=== PATIENT | female | born 1970 | race Caucasian/White ===

== ENCOUNTER 2020-10-27 20:12 | Observation (INO) ==
[2020-10-27 21:18] LABS: Basophils # 0.1 K/mcL (0.0-0.2); Basophils % 0.4 %; Eosinophils # 0.1 K/mcL (0.0-0.6); Eosinophils % 0.4 %; Hematocrit 48.9 % (35.3-44.9); Immature Granulocytes % 0.4 % (0-4); Lymphocytes # 1.6 K/mcL (0.6-4.6); Lymphocytes % 9.2 %; Mean Corpuscular HGB Conc 32.7 g/dL (31.6-35.5); Mean Corpuscular Hemoglobin 26.2 pg (28.0-33.3); Mean Corpuscular Volume 80.2 fL (83.0-100.0); Mean Platelet Volume 9.6 fL (9.4-12.4); Monocytes # 0.9 K/mcL (0.0-1.3); Neutrophils # 15.1 K/mcL (1.6-8.9); Platelet Count 277 K/mcL (140-400); Red Cell Distribution Width 13.4 % (11.5-14.5); Segmented Neutrophils % 84.6 %; White Blood Count 17.9 K/mcL (4.3-11.1)
[2020-10-27 21:18] LABS: Bilirubin,Urine Negative (Negative); Blood,Urine Negative (Negative); Clarity,Urine Clear (Clear); Color,Urine Light-Yellow (Yellow); Glucose,Urine (UA) Normal (Normal); Ketones,Urine Trace mg/dL (Negative); Leukocyte Esterase,Urine Negative (Negative); Nitrite,Urine Negative (Negative); PH,Urine 7.5 pH Units (5.0-8.0); Protein,Urine Trace mg/dL (Neg-Trace); Specific Gravity,Urine 1.025 (1.010-1.025); Urobilinogen,Urine Normal (Normal)
[2020-10-27 21:32] LABS: BUN/Creatinine Ratio 20 (6-26); Blood Urea Nitrogen 14 mg/dL (6-20); Calcium 9.5 mg/dL (8.6-10.3); Carbon Dioxide 24 mEq/L (23-29); Chloride 102 mEq/L (98-107); Glucose 117 mg/dL (70-105); Osmolality,Calculated 282 (280-300); Potassium 4.2 mEq/L (3.5-5.1); Sodium 135 mEq/L (136-145); eGFR For African Americans > 60 (> 60); eGFR For Non-African Americans > 60 (> 60)
[2020-10-27] MEDS ORDERED: 0.9 % Sodium Chloride 1,000 ML IVC ONE (22:04)
[2020-10-27] MEDS ORDERED: *HR* FentaNYL (PF) 100 MCG/2 ML VIAL IVP ONE (22:04)
[2020-10-27] MEDS ORDERED: Ondansetron 4 MG/2 ML VIAL IVP ONE (22:04)
[2020-10-27] MEDS ORDERED: Isovue-370 500 ML BOTTLE IVP ONE (22:04)
[2020-10-27 22:07] LABS: Alanine Aminotransferase 25 Units/L (7-52); Albumin 4.7 g/dL (3.5-5.7); Albumin/Globulin Ratio 1.6 (1.1-2.2); Alkaline Phosphatase 82 Units/L (34-104); Aspartate Amino Transferase 17 Units/L (13-39); Bilirubin,Direct 0.1 mg/dL (0.0-0.2); Bilirubin,Indirect 0.7 mg/dL (0.0-1.0); Bilirubin,Total 0.8 mg/dL (0.3-1.0); Globulin 2.9 g/dL (2.4-3.5); Lipase 7 Units/L (11-82); Total Protein 7.6 g/dL (6.4-8.9)
[2020-10-27] MEDS ORDERED: MetroNIDAZOLE 500 MG/100 ML 500 MG/100 ML BAG IVPB ONE (23:43)
[2020-10-28 02:27] LABS: Adenovirus Not Detected (Not Detect); Bordetella Pertussis Not Detected (Not Detect); Chlamydophila pneumoniae Not Detected (Not Detect); Coronavirus 229E Not Detected (Not Detect); Coronavirus HKU1 Not Detected (Not Detect); Coronavirus NL63 Not Detected (Not Detect); Coronavirus OC43 Not Detected (Not Detect); Human Metapneumovirus Not Detected (Not Detect); Human Rhinovirus/Enterovirus Not Detected (Not Detect); Influenza A Subtype 2009 H1 Not Detected (Not Detect); Influenza B Not Detected (Not Detect); Mycoplasma pneumoniae Not Detected (Not Detect); Parainfluenza Virus 1 Not Detected (Not Detect); Parainfluenza Virus 2 Not Detected (Not Detect); Parainfluenza Virus 3 Not Detected (Not Detect); Parainfluenza Virus 4 Not Detected (Not Detect); Respiratory Syncytial Virus Not Detected (Not Detect); SARS-CoV-2 Not Detected (Not Detect)
[2020-10-28] MEDS ORDERED: Acetaminophen IV 1,000 MG/100 ML BAG IVPB SCH (03:00)
[2020-10-28] MEDS ORDERED: Ondansetron 4 MG/2 ML VIAL IVP SCH ×2 (03:03→03:07)
[2020-10-28] MEDS ORDERED: Pantoprazole 40 MG VIAL IVP ONE (03:04)
[2020-10-28] MEDS ORDERED: Ondansetron 4 MG/2 ML VIAL IVP PRN ×3 (03:11→11:55)
[2020-10-28] MEDS: 0.9 % Sodium Chloride 1,000 ML IVC SCH ×2 (03:18→12:05)
[2020-10-28] MEDS: Acetaminophen IV 1,000 MG/100 ML BAG IVPB SCH ×2 (04:28→09:16)
[2020-10-28] MEDS ORDERED: MetroNIDAZOLE 500 MG/100 ML 500 MG/100 ML BAG IVPB SCH (06:00)
[2020-10-28] MEDS ORDERED: Lidocaine -MPF 4% 5 ML AMPUL ONE (07:25)
[2020-10-28] MEDS ORDERED: Ondansetron 4 MG/2 ML VIAL ONE (07:25)
[2020-10-28] MEDS ORDERED: Lidocaine -MPF 2% 2 ML VIAL ONE (07:25)
[2020-10-28] MEDS ORDERED: *HR* Rocuronium Bromide 50 MG/5 ML VIAL ONE (07:25)
[2020-10-28] MEDS ORDERED: *HR* Propofol 200 MG/20 ML VIAL IVP ONE (07:29)
[2020-10-28] MEDS ORDERED: *HR* HYDROMORPHONE 2 MG/ML VIAL ONE (07:29)
[2020-10-28] MEDS ORDERED: *HR* FentaNYL (PF) 100 MCG/2 ML VIAL ONE (07:29)
[2020-10-28] MEDS ORDERED: Naloxone 0.4 MG/ML INJ IVP PRN (08:55)
[2020-10-28] MEDS ORDERED: *HR* FentaNYL (PF) 100 MCG/2 ML VIAL IVP PRN (08:55)
[2020-10-28] MEDS ORDERED: Nitroglycerin 0.4 MG TAB.SUBL SL PRN (08:55)
[2020-10-28] MEDS ORDERED: Albuterol 2.5 MG/3 ML NEBULIZER IH PRN (08:55)
[2020-10-28] MEDS ORDERED: Acetaminophen IV 1,000 MG/100 ML BAG IVPB ONE ×2 (09:32→09:35)
[2020-10-28] MEDS ORDERED: Ketorolac 30 MG/ML VIAL ONE (09:44)
[2020-10-28] MEDS ORDERED: Sugammadex Sodium 200 MG/2 ML VIAL IV ONE (09:44)
[2020-10-28] MEDS ORDERED: EPHEDrine 50 MG/ML VIAL ONE (09:47)
[2020-10-28] MEDS: *HR* HYDROmorphone (PF) 1 MG/ML SYRINGE IVP PRN ×2 (10:55→11:00)
[2020-10-28] MEDS ORDERED: *HR* OxyCODONE/APAP 5/325 TABLET PO PRN (11:55)
[2020-10-28] MEDS: Ketorolac 15 MG/ML VIAL IVP SCH ×2 (12:15→16:06)
[2020-10-28] MEDS: MetroNIDAZOLE 500 MG/100 ML 500 MG/100 ML BAG IVPB SCH ×2 (12:16→16:07)
[2020-10-28] MEDS: Pantoprazole 40 MG VIAL IVP SCH (16:06)
[2020-10-29] MEDS: Ketorolac 15 MG/ML VIAL IVP SCH ×2 (00:13→05:19)
[2020-10-29] MEDS: MetroNIDAZOLE 500 MG/100 ML 500 MG/100 ML BAG IVPB SCH ×2 (00:13→05:57)
[2020-10-29] MEDS: Pantoprazole 40 MG VIAL IVP SCH (05:18)
[2020-10-29] MEDS ORDERED: Ibuprofen 800 MG TABLET PO ONE (08:00)
[2020-10-29 11:07] VITALS: BP 102/65
== END 2020-10-29 11:30 | disposition home or self-care (01) ==
LOC: EMEROOARM 20:12 → 2ANU 20:12
PROVIDERS: ADMIT Surgery; ATTEND Surgery

== ENCOUNTER 2020-11-03 10:32 | Inpatient (IN) ==
[2020-11-03] MEDS ORDERED: Isovue-370 500 ML BOTTLE IVP ONE (11:04)
[2020-11-03] MEDS ORDERED: *HR* HYDROmorphone (PF) 1 MG/ML SYRINGE IVP STA ×2 (11:09→13:48)
[2020-11-03] MEDS ORDERED: Ondansetron 4 MG/2 ML VIAL IVP STA (11:09)
[2020-11-03 11:16] LABS: Bilirubin,Urine Negative (Negative); Blood,Urine Negative (Negative); Clarity,Urine Clear (Clear); Color,Urine Light-Yellow (Yellow); Glucose,Urine (UA) Normal (Normal); Ketones,Urine Negative (Negative); Leukocyte Esterase,Urine Negative (Negative); Nitrite,Urine Negative (Negative); PH,Urine 6.5 pH Units (5.0-8.0); Protein,Urine Trace mg/dL (Neg-Trace); Specific Gravity,Urine 1.021 (1.010-1.025); Urobilinogen,Urine Normal (Normal)
[2020-11-03] MEDS ORDERED: 0.9 % Sodium Chloride 1,000 ML IVC ONE (11:37)
[2020-11-03 11:44] LABS: INR 1.1; Prothrombin Time 13.2 Seconds (9.4-12.1)
[2020-11-03 11:47] LABS: Activated Partial Thrombo Time 31.6 Seconds (26.0-36.0)
[2020-11-03 11:49] LABS: Basophils # 0.1 K/mcL (0.0-0.2); Basophils % 0.8 %; Eosinophils # 0.2 K/mcL (0.0-0.6); Eosinophils % 2.1 %; Hematocrit 50.5 % (35.3-44.9); Immature Granulocytes % 0.7 % (0-4); Lymphocytes # 2.1 K/mcL (0.6-4.6); Lymphocytes % 19.6 %; Mean Corpuscular HGB Conc 31.7 g/dL (31.6-35.5); Mean Corpuscular Hemoglobin 25.9 pg (28.0-33.3); Mean Corpuscular Volume 81.8 fL (83.0-100.0); Mean Platelet Volume 9.3 fL (9.4-12.4); Monocytes # 0.5 K/mcL (0.0-1.3); Monocytes % 4.8 %; Neutrophils # 7.7 K/mcL (1.6-8.9); Platelet Count 304 K/mcL (140-400); Red Blood Count 6.17 M/mcL (3.82-4.97); Red Cell Distribution Width 13.3 % (11.5-14.5); White Blood Count 10.6 K/mcL (4.3-11.1)
[2020-11-03 11:57] LABS: Alanine Aminotransferase 27 Units/L (7-52); Albumin 4.4 g/dL (3.5-5.7); Albumin/Globulin Ratio 1.7 (1.1-2.2); Alkaline Phosphatase 70 Units/L (34-104); Aspartate Amino Transferase 23 Units/L (13-39); BUN/Creatinine Ratio 16 (6-26); Bilirubin,Direct 0.1 mg/dL (0.0-0.2); Bilirubin,Indirect 0.5 mg/dL (0.0-1.0); Bilirubin,Total 0.6 mg/dL (0.3-1.0); Blood Urea Nitrogen 13 mg/dL (6-20); Calcium 9.5 mg/dL (8.6-10.3); Carbon Dioxide 27 mEq/L (23-29); Chloride 104 mEq/L (98-107); Globulin 2.6 g/dL (2.4-3.5); Glucose 106 mg/dL (70-105); Lipase 8 Units/L (11-82); Osmolality,Calculated 287 (280-300); Potassium 4.3 mEq/L (3.5-5.1); Sodium 138 mEq/L (136-145); eGFR For African Americans > 60 (> 60); eGFR For Non-African Americans > 60 (> 60)
[2020-11-03] MEDS ORDERED: MetroNIDAZOLE 500 MG/100 ML 500 MG/100 ML BAG IVPB ONE (13:24)
[2020-11-03] MEDS ORDERED: Naloxone 0.4 MG/ML INJ IVP PRN (15:10)
[2020-11-03] MEDS: D5% in 0.9% NACL 1,000 ML IVC SCH (16:46)
[2020-11-03] MEDS: Pantoprazole 40 MG VIAL IVP SCH (19:06)
[2020-11-04] MEDS: Acetaminophen IV 1,000 MG/100 ML BAG IVPB SCH ×3 (00:35→15:58)
[2020-11-04] MEDS: Ondansetron 4 MG/2 ML VIAL IVP PRN ×2 (01:36→09:26)
[2020-11-04 05:13] LABS: Basophils # 0.1 K/mcL (0.0-0.2); Basophils % 0.7 %; Eosinophils # 0.2 K/mcL (0.0-0.6); Eosinophils % 2.4 %; Hematocrit 43.7 % (35.3-44.9); Immature Granulocytes % 0.5 % (0-4); Lymphocytes # 2.4 K/mcL (0.6-4.6); Lymphocytes % 25.9 %; Mean Corpuscular HGB Conc 31.6 g/dL (31.6-35.5); Mean Corpuscular Hemoglobin 26.1 pg (28.0-33.3); Mean Corpuscular Volume 82.8 fL (83.0-100.0); Mean Platelet Volume 9.4 fL (9.4-12.4); Monocytes # 0.6 K/mcL (0.0-1.3); Monocytes % 6.7 %; Platelet Count 259 K/mcL (140-400); Red Blood Count 5.28 M/mcL (3.82-4.97); Red Cell Distribution Width 13.2 % (11.5-14.5); Segmented Neutrophils % 63.8 %; White Blood Count 9.4 K/mcL (4.3-11.1)
[2020-11-04 05:14] LABS: Hemoglobin 13.8 g/dL (11.5-15.4)
[2020-11-04 05:36] LABS: Alanine Aminotransferase 27 Units/L (7-52); Albumin 3.6 g/dL (3.5-5.7); Albumin/Globulin Ratio 1.5 (1.1-2.2); Alkaline Phosphatase 50 Units/L (34-104); Aspartate Amino Transferase 21 Units/L (13-39); BUN/Creatinine Ratio 15 (6-26); Bilirubin,Direct 0.1 mg/dL (0.0-0.2); Bilirubin,Indirect 0.5 mg/dL (0.0-1.0); Bilirubin,Total 0.6 mg/dL (0.3-1.0); Blood Urea Nitrogen 12 mg/dL (6-20); Calcium 8.6 mg/dL (8.6-10.3); Carbon Dioxide 27 mEq/L (23-29); Chloride 105 mEq/L (98-107); Globulin 2.4 g/dL (2.4-3.5); Glucose 101 mg/dL (70-105); Magnesium 2.3 mg/dL (1.6-2.6); Osmolality,Calculated 284 (280-300); Phosphorous 3.8 mg/dL (2.7-4.5); Potassium 4.3 mEq/L (3.5-5.1); Sodium 137 mEq/L (136-145); eGFR For African Americans > 60 (> 60); eGFR For Non-African Americans > 60 (> 60)
[2020-11-04] MEDS: lisinopriL 20 MG TABLET PO SCH (07:37)
[2020-11-04] MEDS: Pantoprazole 40 MG VIAL IVP SCH (07:38)
[2020-11-04] MEDS: Bisacodyl 10 MG RECTAL SUPPOSITORY RC SCH (09:26)
[2020-11-04] MEDS ORDERED: Milk and Molasses Enema 200 ML RC ONE (12:45)
[2020-11-04] MEDS: D5% in 0.9% NACL 1,000 ML IVC SCH (14:41)
[2020-11-04] MEDS ORDERED: *HR* OxyCODONE/APAP 7.5/325 TABLET PO PRN (17:25)
[2020-11-04] MEDS: MetroNIDAZOLE 500 MG/100 ML 500 MG/100 ML BAG IVPB SCH (18:12)
[2020-11-04] MEDS: *HR* OxyCODONE/APAP 5/325 TABLET PO PRN (18:22)
[2020-11-05] MEDS: MetroNIDAZOLE 500 MG/100 ML 500 MG/100 ML BAG IVPB SCH ×3 (01:52→17:36)
[2020-11-05 02:39] LABS: Basophils # 0.1 K/mcL (0.0-0.2); Basophils % 0.6 %; Eosinophils # 0.2 K/mcL (0.0-0.6); Hematocrit 44.6 % (35.3-44.9); Hemoglobin 14.6 g/dL (11.5-15.4); Immature Granulocytes % 0.4 % (0-4); Lymphocytes # 2.4 K/mcL (0.6-4.6); Lymphocytes % 27.1 %; Mean Corpuscular HGB Conc 32.7 g/dL (31.6-35.5); Mean Corpuscular Hemoglobin 26.7 pg (28.0-33.3); Mean Corpuscular Volume 81.5 fL (83.0-100.0); Mean Platelet Volume 9.4 fL (9.4-12.4); Monocytes # 0.6 K/mcL (0.0-1.3); Monocytes % 6.9 %; Neutrophils # 5.7 K/mcL (1.6-8.9); Platelet Count 272 K/mcL (140-400); Red Blood Count 5.47 M/mcL (3.82-4.97)
[2020-11-05 02:56] LABS: BUN/Creatinine Ratio 14 (6-26); Blood Urea Nitrogen 11 mg/dL (6-20); Calcium 9.1 mg/dL (8.6-10.3); Carbon Dioxide 24 mEq/L (23-29); Chloride 106 mEq/L (98-107); Glucose 95 mg/dL (70-105); Magnesium 2.2 mg/dL (1.6-2.6); Osmolality,Calculated 283 (280-300); Potassium 3.9 mEq/L (3.5-5.1); Sodium 137 mEq/L (136-145); eGFR For African Americans > 60 (> 60); eGFR For Non-African Americans > 60 (> 60)
[2020-11-05] MEDS: lisinopriL 20 MG TABLET PO SCH (08:09)
[2020-11-05] MEDS: Pantoprazole 40 MG VIAL IVP SCH (08:09)
[2020-11-05] MEDS: Ondansetron 4 MG/2 ML VIAL IVP PRN (10:31)
[2020-11-05] MEDS ORDERED: Isovue-370 500 ML BOTTLE PO ONE (11:27)
[2020-11-05] MEDS: Bisacodyl 10 MG RECTAL SUPPOSITORY RC SCH (11:36)
[2020-11-05] MEDS ORDERED: polyethylene glycoL 3350 17 GM POWD.PACK PO ONE (12:53)
[2020-11-05] MEDS: *HR* OxyCODONE/APAP 5/325 TABLET PO PRN (19:42)
[2020-11-06] MEDS: MetroNIDAZOLE 500 MG/100 ML 500 MG/100 ML BAG IVPB SCH ×2 (02:29→09:58)
[2020-11-06] MEDS: *HR* OxyCODONE/APAP 5/325 TABLET PO PRN (03:34)
[2020-11-06] MEDS: Ondansetron 4 MG/2 ML VIAL IVP PRN (04:58)
[2020-11-06] MEDS: lisinopriL 20 MG TABLET PO SCH (09:57)
[2020-11-06] MEDS: Pantoprazole 40 MG VIAL IVP SCH (09:58)
[2020-11-06] MEDS: polyethylene glycoL 3350 17 GM POWD.PACK PO PRN (10:05)
[2020-11-06] MEDS: cefTRIAXone 1,000 MG in Water for inj. (sterile) 10 ML IVP SCH (13:46)
[2020-11-06] MEDS: metroNIDAZOLE 500 MG TABLET PO SCH ×2 (14:54→20:36)
[2020-11-07] MEDS: metroNIDAZOLE 500 MG TABLET PO SCH ×3 (08:35→21:59)
[2020-11-07] MEDS: Pantoprazole 40 MG VIAL IVP SCH (08:36)
[2020-11-07] MEDS: cefTRIAXone 1,000 MG in Water for inj. (sterile) 10 ML IVP SCH (08:36)
[2020-11-07] MEDS: lisinopriL 20 MG TABLET PO SCH (08:44)
[2020-11-07] MEDS: polyethylene glycoL 3350 17 GM POWD.PACK PO PRN (08:46)
[2020-11-07] MEDS ORDERED: Doxycycline 100 MG in 0.9 % Sodium Chloride Mini Bag 100 ML IVPB SCH (09:00)
[2020-11-07] MEDS: Sennosides/Docusate Sodium TABLET PO SCH ×2 (09:07→21:58)
[2020-11-07] MEDS: Doxycycline 100 MG CAPSULE PO SCH (21:59)
[2020-11-07] MEDS ORDERED: *HR* Promethazine 25 MG/ML VIAL IM ONE (23:59)
[2020-11-08] MEDS: metroNIDAZOLE 500 MG TABLET PO SCH ×3 (09:04→20:00)
[2020-11-08] MEDS: Doxycycline 100 MG CAPSULE PO SCH ×2 (09:04→20:00)
[2020-11-08] MEDS: Sennosides/Docusate Sodium TABLET PO SCH ×2 (09:04→20:00)
[2020-11-08] MEDS: lisinopriL 20 MG TABLET PO SCH (09:04)
[2020-11-08] MEDS: cefTRIAXone 1,000 MG in Water for inj. (sterile) 10 ML IVP SCH (11:42)
[2020-11-08] MEDS: Pantoprazole 40 MG VIAL IVP SCH (11:43)
[2020-11-09 04:06] LABS: Basophils # 0.1 K/mcL (0.0-0.2); Basophils % 0.6 %; Eosinophils # 0.2 K/mcL (0.0-0.6); Eosinophils % 1.5 %; Hematocrit 44.3 % (35.3-44.9); Hemoglobin 14.2 g/dL (11.5-15.4); Immature Granulocytes % 0.3 % (0-4); Lymphocytes # 2.8 K/mcL (0.6-4.6); Lymphocytes % 24.7 %; Mean Corpuscular HGB Conc 32.1 g/dL (31.6-35.5); Mean Corpuscular Volume 81.1 fL (83.0-100.0); Mean Platelet Volume 9.7 fL (9.4-12.4); Monocytes # 0.8 K/mcL (0.0-1.3); Monocytes % 7.1 %; Neutrophils # 7.6 K/mcL (1.6-8.9); Platelet Count 245 K/mcL (140-400); Red Blood Count 5.46 M/mcL (3.82-4.97); Red Cell Distribution Width 13.6 % (11.5-14.5); Segmented Neutrophils % 65.8 %; White Blood Count 11.5 K/mcL (4.3-11.1)
[2020-11-09 04:22] LABS: BUN/Creatinine Ratio 19 (6-26); Blood Urea Nitrogen 15 mg/dL (6-20); Calcium 9.2 mg/dL (8.6-10.3); Carbon Dioxide 25 mEq/L (23-29); Chloride 104 mEq/L (98-107); Glucose 97 mg/dL (70-105); Magnesium 1.9 mg/dL (1.6-2.6); Osmolality,Calculated 285 (280-300); Potassium 3.6 mEq/L (3.5-5.1); Sodium 137 mEq/L (136-145); eGFR For African Americans > 60 (> 60); eGFR For Non-African Americans > 60 (> 60)
[2020-11-09] MEDS: cefTRIAXone 1,000 MG in Water for inj. (sterile) 10 ML IVP SCH (08:29)
[2020-11-09] MEDS: Doxycycline 100 MG CAPSULE PO SCH ×2 (08:30→20:23)
[2020-11-09] MEDS: Sennosides/Docusate Sodium TABLET PO SCH ×2 (08:30→20:23)
[2020-11-09] MEDS: lisinopriL 20 MG TABLET PO SCH (08:30)
[2020-11-09] MEDS: metroNIDAZOLE 500 MG TABLET PO SCH ×3 (08:30→20:23)
[2020-11-09] MEDS: polyethylene glycoL 3350 17 GM POWD.PACK PO PRN (09:27)
[2020-11-10 06:16] LABS: Basophils # 0.1 K/mcL (0.0-0.2); Basophils % 0.5 %; Eosinophils # 0.2 K/mcL (0.0-0.6); Eosinophils % 2.1 %; Hematocrit 46.4 % (35.3-44.9); Hemoglobin 14.9 g/dL (11.5-15.4); Immature Granulocytes % 0.4 % (0-4); Lymphocytes # 2.7 K/mcL (0.6-4.6); Mean Corpuscular HGB Conc 32.1 g/dL (31.6-35.5); Mean Corpuscular Hemoglobin 26.2 pg (28.0-33.3); Mean Corpuscular Volume 81.5 fL (83.0-100.0); Mean Platelet Volume 9.7 fL (9.4-12.4); Monocytes # 0.7 K/mcL (0.0-1.3); Neutrophils # 6.3 K/mcL (1.6-8.9); Platelet Count 250 K/mcL (140-400); Red Blood Count 5.69 M/mcL (3.82-4.97); Red Cell Distribution Width 13.6 % (11.5-14.5)
[2020-11-10] MEDS: Sennosides/Docusate Sodium TABLET PO SCH (07:59)
[2020-11-10] MEDS: lisinopriL 20 MG TABLET PO SCH (07:59)
[2020-11-10] MEDS: metroNIDAZOLE 500 MG TABLET PO SCH (07:59)
[2020-11-10] MEDS: Doxycycline 100 MG CAPSULE PO SCH (07:59)
[2020-11-10] MEDS: cefTRIAXone 1,000 MG in Water for inj. (sterile) 10 ML IVP SCH (07:59)
[2020-11-10 08:05] VITALS: BP 118/65
== END 2020-11-10 14:36 | disposition home or self-care (01) | DRG 394 ==
LOC: EMEROOARM 10:32 → 3ANU 10:32 → SUATTDRO 15:08 → 3ANU 15:55 → SUATTDRO 11-06 18:31
PROVIDERS: ADMIT Pharmacist; ATTEND Internal Medicine